=== PATIENT | female | born 1980 | race Caucasian/White ===

== ENCOUNTER 2017-02-26 20:34 | Emergency (ER) | payer OTHER ==
--- NOTE | ~2017-02-26 | EKG ---
PATIENT: JOY ORTEGA UNIT #: [id number] Ventricular Rate: 80 BPM Atrial Rate: 80 BPM P-R Interval: 130 ms QRS Duration: 88 ms Q-T Interval: 386 ms QTC Calculation(Bezet): 445 ms P [place]: 48 degrees Calculated R [place]: 49 degrees Calculated T [place]: 40 degrees Diagnosis Line: Normal sinus rhythm Diagnosis Line: Normal ECG Diagnosis Line: When compared with ECG of 26-FEB-2017 20:38, Diagnosis Line: (unconfirmed) Diagnosis Line: No significant change was found Diagnosis Line: Confirmed by RITIKA HENDRICKS MD ([id number]) on 03/01/2017 Diagnosis Line: 9:42:17 AM INTERPRETING MD: RUTHIE PRICE
[~2017-02-26 20:34] MED LIST: ACETAMINOPHEN PO; ALBUTEROL17 G1 INH; ALLERGY10 MG PO; ANTIVERT PO; APRESOLINE10 M1 PO; APRESOLINE10 MG PO; BACTRIM DS TABL1 TA1 PO; BENADRYL PO; CARVEDILOL3.125 MG PO; CELEXA PO; CLARITIN10 M3 PO; COREG3.125 MG PO; COUMADIN PO; COUMADIN10 MG PO; COUMADIN5 MG PO; DOXYCYCLINE PO; FIORICET 50-321 EACH PO; FLEXERIL PO; FLEXERIL10 M1 PO; FLEXERIL10 MG PO; FLONASE 0.05% N16 G1; HYDRALAZINE HCL10 MG PO; IBUPROFEN800 MG PO; K-DUR10 MEQ PO; LORTAB 5/500 TA1 TA1 PO; LOVENOX100 MG/ML INJ; MACROBID100 MG PO; MAXZIDE 75-501 EACH PO; MAXZIDE 75/50 T1 TA1 PO; MAXZIDE-25 MG1 UDTAB PO; NAPROSYN500 MG PO; NAPROXEN PO; PHENERGAN PO; PHENERGAN12.5 MG PO; VIBRAMYCIN100 M1 PO; WARFARIN PO; WARFARIN SODIU7.5 MG PO; WARFARIN SODIUM10 MG PO; ZITHROMAX PO; ZOFRAN ODT4 MG PO
[2017-02-26 21:01] LABS: URINE SOURCE CLEAN CATCH
[2017-02-26 21:05] LABS: BASOPHIL# 0.1 X10e3 (0-0.3); BASOPHIL% 0.6 % (0-2.5); EOSINOPHIL# 0.2 X10e3 (0-0.7); EOSINOPHIL% 1.6 % (0.0-7.0); HEMATOCRIT 41.6 % (35.0-45.0); HEMOGLOBIN 13.6 gm/dL (12.0-16.0); LYMPHOCYTE# 2.3 X10e3 (1.0-3.5); LYMPHOCYTE% 19.1 % (17.0-45.0); MEAN CELL VOLUME 84.3 FL (83-96); MEAN CORPUSCULAR HEMOGLOBIN 27.6 PG (28-34); MEAN CORPUSCULAR HGB CONC 32.7 g/dL (30-36); MEAN PLATELET VOLUME 8.1 FL (6.5-11.5); MONOCYTE# 0.8 X10e3 (0-1.0); MONOCYTE% 6.5 % (3.0-12.0); NEUTROPHIL# 8.5 X10e3 (1.5-7.1); NEUTROPHIL% 72.2 % (40-75); PLATELET COUNT 288 X10e3 (140-420); RED BLOOD COUNT 4.94 X10e (3.90-5.30); RED CELL DISTRIBUTION WIDTH 12.9 % (11.0-15.5); WHITE BLOOD COUNT 11.8 X10e3 (4.0-10.5)
[2017-02-26 21:07] LABS: DIFF IND NO
[2017-02-26 21:09] LABS: URINE APPEARANCE CLEAR; URINE BILIRUBIN NEG (NEG); URINE BLOOD TRACE (NEG); URINE COLOR YELLOW; URINE GLUCOSE NEG (NEG); URINE KETONE NEG (NEG); URINE LEUKOCYTE ESTERASE NEG (NEG); URINE NITRATE NEG (NEG); URINE PH 6.5 (5-8); URINE PROTEIN NEG (NEG); URINE SPECIFIC GRAVITY 1.018 (1.003-1.035)
[2017-02-26 21:13] LABS: URINE BACTERIA AUWI NEG (NEGATIVE); URINE SQUAMOUS EPITHELIAL CELL NONE SEEN /[HPF]; UWBCS1 AUWI 0-2 (0-5)
[2017-02-26 21:13] LABS: POC - CKMB <1.0 ng/mL (0.0-7.9); POC - TROPONIN <0.05 ng/mL (<=0.05)
[2017-02-26 21:15] LABS: CULTURE INDICATED? NO
[2017-02-26 21:28] LABS: ALBUMIN SERUM 3.9 g/dL (3.5-5.0); BILIRUBIN,TOTAL 0.5 mg/dL (0.2-2.0); CALCIUM SERUM 9.3 mg/dL (8.4-10.2); CREATININE SERUM 0.9 mg/dL (0.6-1.4); GLOM FILT RATE Estimated 82.3 mL/min (>60); POTASSIUM 4.3 mmol/L (3.5-5.1); PROTEIN TOTAL SERUM 7.5 g/dL (6.0-8.3)
[2017-02-26 21:29] LABS: INR 2.1; PROTHROMBIN TIME (PATIENT) 22.7 SECONDS (9.6-11.5)
[2017-02-26 21:31] LABS: BILIRUBIN, DIRECT 0.1 mg/dL (0.0-0.2); BILIRUBIN,INDIRECT 0.4 mg/dL (0.0-0.9)
== END 2017-02-26 23:00 | disposition home or self-care (01) ==
LOC: CED 20:34
PROVIDERS: Emergency Medicine
DX: R51 Headache (principal); I10 Essential (primary) hypertension; Z88.0 Allergy status to penicillin
CPT/HCPCS: 36415; 80048; 80076; 81003; 82553; 83880; 84484; 84703; 85025; 85610; 93005; 96360; 96361; 99284; J2405

== ENCOUNTER 2017-05-26 16:37 | Emergency (ER) | payer OTHER ==
[~2017-05-26] VITALS: Ht 152.4 cm; Wt 93.4 kg
== END 2017-05-26 17:30 | disposition home or self-care (01) ==
LOC: CED 16:37 → CFTX 16:37
DX: L23.7 Allergic contact dermatitis due to plants, except food (principal); I10 Essential (primary) hypertension; E78.5 Hyperlipidemia, unspecified; Z86.718 Personal history of other venous thrombosis and embolism; Z86.711 Personal history of pulmonary embolism; Z90.49 Acquired absence of other specified parts of digestive tract; Z79.01 Long term (current) use of anticoagulants; Z88.0 Allergy status to penicillin; Z88.1 Allergy status to other antibiotic agents
CPT/HCPCS: 96372; 99282; J3301

== ENCOUNTER 2017-06-15 09:41 | Emergency (ER) | payer OTHER ==
[~2017-06-15] VITALS: Ht 162.6 cm; Wt 93.4 kg
--- NOTE | ~2017-06-15 | US84 ---
[id number] [facility] [address] [place], [place] [address] [id number] MR#: [id number] Acc #: [id number] NAME: JOY ORTEGA : 1980 SEX: F STUDY DATE/TIME: 06/15/2017 11:10 UNIT: JEWEL ROOM: STUDY DESCRIPTION: US LE Veins Complete Johnnie Stdy Attending Physician: Terry Rucker Ordering Physician: Ed Doctor [id number] [facility] Primary Care Physician: Raiza Merchant M.D. MEDICAL IMAGING REPORT This report is preliminary unless electronic signature is present EXAM Bilateral lower extremity DVT study dated 06/15/2017. COMPARISON Left lower extremity DVT study dated 06/05/2014. HISTORY Bilateral leg pain for 2 days. History of clots. Last DVT clot was in 2010. History of hypertension, hyperlipidemia. Patient is currently on blood thinners. TECHNIQUE Structural chamorro-scale analysis, color-Doppler flow analysis, and waveform analysis with compression and augmentation of bilateral lower extremity veins were performed as per the protocol. FINDINGS The examination is negative. There is no evidence of deep venous thrombus from the groin to the lower calf bilaterally. Visualized greater saphenous veins are also patent. IMPRESSION Negative examination. No evidence of lower extremity deep venous thrombosis. Dictated by... Humberto Fournier M.D. THIS IS AN ELECTRONICALLY VERIFIED REPORT Humberto Fournier M.D. at 06/16/2017 3:01 PM CPR/tmw TD: 06/15/2017 14:44 JOB #: [id number] MEDICAL IMAGING REPORT Page 1 of 1 COPY
--- NOTE | ~2017-06-15 | EKG ---
PATIENT: JOY ORTEGA UNIT #: [id number] Ventricular Rate: 63 BPM Atrial Rate: 63 BPM P-R Interval: 130 ms QRS Duration: 88 ms Q-T Interval: 398 ms QTC Calculation(Bezet): 407 ms P [place]: 28 degrees Calculated R [place]: 45 degrees Calculated T [place]: 33 degrees Diagnosis Line: Normal sinus rhythm Diagnosis Line: Normal ECG Diagnosis Line: When compared with ECG of 26-FEB-2017 20:38, Diagnosis Line: No significant change was found Diagnosis Line: Confirmed by SIMRAN FLOYD MD ([id number]) on 06/16/2017 Diagnosis Line: 5:02:51 PM INTERPRETING MD: MARIEL PRICE
[2017-06-15 12:59] LABS: URINE SOURCE CLEAN CATCH
[2017-06-15 13:00] LABS: BASOPHIL# 0.1 X10e3 (0-0.3); BASOPHIL% 0.6 % (0-2.5); EOSINOPHIL# 0.1 X10e3 (0-0.7); EOSINOPHIL% 1.4 % (0.0-7.0); HEMATOCRIT 40.6 % (35.0-45.0); HEMOGLOBIN 13.2 gm/dL (12.0-16.0); LYMPHOCYTE# 2.4 X10e3 (1.0-3.5); LYMPHOCYTE% 23.1 % (17.0-45.0); MEAN CELL VOLUME 85.1 FL (83-96); MEAN CORPUSCULAR HEMOGLOBIN 27.6 PG (28-34); MEAN CORPUSCULAR HGB CONC 32.4 g/dL (30-36); MEAN PLATELET VOLUME 8.1 FL (6.5-11.5); MONOCYTE# 0.8 X10e3 (0-1.0); MONOCYTE% 7.2 % (3.0-12.0); NEUTROPHIL# 7.1 X10e3 (1.5-7.1); NEUTROPHIL% 67.7 % (40-75); PLATELET COUNT 278 X10e3 (140-420); RED BLOOD COUNT 4.77 X10e (3.90-5.30); RED CELL DISTRIBUTION WIDTH 13.5 % (11.0-15.5); WHITE BLOOD COUNT 10.5 X10e3 (4.0-10.5)
[2017-06-15 13:02] LABS: DIFF IND NO
[2017-06-15 13:06] LABS: URINE APPEARANCE CLEAR; URINE BILIRUBIN NEG (NEG); URINE BLOOD 2+ (NEG); URINE COLOR YELLOW; URINE GLUCOSE NEG (NEG); URINE KETONE NEG (NEG); URINE LEUKOCYTE ESTERASE NEG (NEG); URINE NITRATE NEG (NEG); URINE PH 6.5 (5-8); URINE PROTEIN NEG (NEG); URINE UROBILINOGEN 0.2 MG/DL (NEG)
[2017-06-15 13:08] LABS: CULTURE INDICATED? NO; URINE BACTERIA AUWI NEG (NEGATIVE); URINE SQUAMOUS EPITHELIAL CELL OCC /[HPF]
[2017-06-15 13:17] LABS: PARTIAL THROMBOPLASTIN TIME 32.4 SECONDS (23.5-31.3); PROTHROMBIN TIME (PATIENT) 22.1 SECONDS (10.0-11.7)
[2017-06-15 13:20] LABS: BUN/CREATININE RATIO 25.55; CALCIUM SERUM 9.1 mg/dL (8.4-10.2); CREATININE SERUM 0.9 mg/dL (0.6-1.4); GLOM FILT RATE Estimated 81.7 mL/min (>60); POTASSIUM 4.3 mmol/L (3.5-5.1)
== END 2017-06-15 14:44 | disposition home or self-care (01) ==
LOC: CED 09:41
PROVIDERS: Emergency Medicine
DX: R53.1 Weakness (principal); I10 Essential (primary) hypertension; F32.9 Major depressive disorder, single episode, unspecified; Z86.718 Personal history of other venous thrombosis and embolism; Z86.711 Personal history of pulmonary embolism; Z90.49 Acquired absence of other specified parts of digestive tract; Z98.51 Tubal ligation status; Z88.0 Allergy status to penicillin; Z88.1 Allergy status to other antibiotic agents
CPT/HCPCS: 36415; 80048; 81003; 82947; 84703; 85025; 85610; 85730; 93005; 93970; 99285